=== PATIENT | female | born 1990 | race Caucasian/White ===

== ENCOUNTER → 2021-03-30 | Outpatient (CLI) | payer BC ==
[2014-08-17 21:40] VITALS: BP 129/79
--- NOTE | 2021-03-30 10:27 | RAD ---
EXAM: Abdomen and pelvis CT without intravenous contrast. HISTORY: Pain. Nephrolithiasis. TECHNIQUE: Computed tomographic images of the abdomen and pelvis were obtained without contrast. Mult iplanar reformatting was performed. *One or more of the following individualized dose reduction techniques were utilized for this examina tion: 1. Automated exposure control. 2. Adjustment of the mA and/or kV according to patient size. 3. Use of iterative reconstruction technique. COMPARISON: None. FINDINGS: Evaluation of the lower thorax is unremarkable. No hepatic lesion is seen. The gallbladder, pancreas, spleen, stomach and adrenal glands are unremarkable. There is a 2 mm nonobstructing stone within the upper mid zone of the right kidney. There is no hydro nephrosis. No ureteral stone is seen. No solid or cystic renal lesion is seen. The bladder is unremar kable. The uterus and adnexal regions are unremarkable. There is no appendicitis. There is no bowel obstruction. There is no abnormal bowel wall thickening. The aorta is normal in caliber. There is no lymphadenopathy. There is no acute or suspicious osseous finding. IMPRESSION: 1. 2 mm nonobstructing right renal stone. 2. No convincing acute abdominal or pelvic finding. Electronically signed by: Cely Blanca MD (03/30/2021 10:25 AM) [id number]
== END ==
LOC: CT 09:40
PROVIDERS: ATTEND Family Medicine
DX: N20.0 Calculus of kidney (principal)
CPT/HCPCS: 74176